=== PATIENT | female | born 1955 | race Caucasian/White ===

== ENCOUNTER → 2017-10-04 | Outpatient (CLI) | payer MEDICAID ==
--- NOTE | 2017-10-05 09:16 | CT ---
History: Lower back pain Study: CT lumbar spine without contrast. Sagittal and coronal reformations were provided. Comparison: None Findings: There is normal alignment without fracture or compression. At T12-L1 there is right ventral moderate bony ridging with moderate disc space narrowing. There are prominent osteophytes about the facet joints, right worse than left At L1-2 there is severe disc space narrowing with severe anterior osteophyte formation and broad mode rate right ventral disc protrusion which is calcified. There is severe facet joint osteophyte formati on. At L2-3 there is broad disc bulging with faint calcification. There are mild osteophytes about the fa cet joints. There is ligamentum flavum ossification. At L3-4 there is diffuse mild disc bulging without disc space narrowing. At L4-5 there is severe facet joint osteoarthritis right greater than left with mild diffuse disc bul ging At L5-S1 there is anterior fusion in anatomical alignment. There are prominent osteophytes about the L5-S1 facet joints. The sacroiliac joints are relatively unremarkable. There are several bilateral punctate renal calcifications without hydronephrosis. Impression: 1. Degenerative disc disease especially severe at T12-L1 and L1-2 as described 2. Severe facet joint osteoarthritis as described 3. Acquired spinal stenosis most severe at L1-2 ventrally to the right and less severe at T12-L1 righ t ventrally 4. Several punctate renal calculi without hydronephrosis Reported By:
--- NOTE | 2017-10-05 10:29 | CT ---
HISTORY: Cervical spondylosis. Neck pain. No known trauma. Study: Computed tomography of the cervical spine: Multiple axial images were obtained throughout th e cervical spine with subsequent reformatting in the sagittal and coronal planes. Radiation dose red uction techniques utilized. Comparison: None Findings: Examination of the visualized brain reveals mild atrophy . There delete is partial opacification of a few ethmoid air cells on the right with what may be a small mucocele with calcified contents in the right side at. This measures approximately the 1.9 x 1.2 cm. There appears to be minimal bony expa nsion. Otherwise, the paranasal sinuses are clear. The mastoids as visualized are clear. The IAC's are symmetric. I see no evidence of cervical adenopathy. A pacemaker overlies the left chest , however, I do not se e the electrodes extending into the chest. They seemed to terminate in the lower aspect of the left side of the neck. The thyroid is mildly heterogeneous. There may be enlargement of the right lobe. Thyroid ultrasound is recommended. The visualized lung parenchyma is clear. Examination of the sagittally reconstructed images demonstrates loss of normal cervical lordosis. Mi ld degenerative changes present at multiple levels. Loss of normal cervical lordosis is noted. Ther e appears to be fusion of the right 1st and 2nd ribs just lateral to the cervical spine. This appear s to be creating moderate angulation through the upper thoracic spine. Skull base/C1: The atlanto occipital joints appear to be well maintained. The foramen magnum is wid francisco patent. C1/C2: Moderate degenerative changes noted in the pre odontoid space. There appears to be a right-s ided mildly displaced os odontoideum. The anterior and posterior arch of C1 is intact. Mild facet a rthropathy is noted at C1/C2 bilaterally. C2/C3: Minimal uncovertebral joint arthropathy and facet degeneration. No significant spinal or for aminal stenosis. C3/C4: Moderate facet arthropathy on the left with mild uncovertebral joint arthropathy. Mild sara inal stenosis on the left, minimal on the right. C4/C5: Moderately severe facet arthropathy on the left with mild to moderate uncovertebral joint art hropathy. Moderate facet arthropathy on the right with minimal uncovertebral joint arthropathy. Mil [id number] foraminal stenosis on the left, mild on the right. Minimal disc spur complex formation . C5/C6: There is severe disc spur complex formation. Moderately severe spurring is noted posteriorly . This reduces the spinal canal to approximately 13 mm. Moderately severe facet arthropathy is note d on the left with moderate to moderately severe uncovertebral joint arthropathy. Moderate uncoverte bral joint arthropathy is noted on the right with mild facet arthropathy. Moderate to moderately sev ere foraminal stenosis on the left with mild on the right. C6/C7: Mild facet arthropathy on the left. Minimal foraminal stenosis with minimal uncovertebral kalpesh int arthropathy. Small disc spur complex. C7/T1: There is moderately severe disc spur complex formation. This reduces the spinal canal to elvi roximately 12 mm. There is moderate uncovertebral joint arthropathy on the right as well as left. T1/T2: There is fusion of the proximal right 1st rib to the proximal right 2nd rib. This is causing angulation of the upper thoracic spine. T2/T3: No significant abnormalities. T3/T4: No significant abnormalities. IMPRESSION: 1. Cervical spondylosis as described above, predominating at C5/C6 and C7/T1. 2. 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 3. Please see detailed report above. 4.. Small mucocele within the posterior aspect of the right ethmoid air cells. 5. There is suggestion of thyroid enlargement on the right. Thyroid ultrasound is recommended. Reported By:
== END | disposition home or self-care (01) | DRG 552 ==
LOC: RAD 14:02
PROVIDERS: ATTEND Psychiatry & Neurology Neurology
DX: M47.812 Spondylosis without myelopathy or radiculopathy, cervical region (principal); M47.817 Spondylosis without myelopathy or radiculopathy, lumbosacral region; M51.35 Other intervertebral disc degeneration, thoracolumbar region; M47.896 Other spondylosis, lumbar region; M48.05 Spinal stenosis, thoracolumbar region; N20.0 Calculus of kidney
CPT/HCPCS: 72125; 72131